=== PATIENT | female | born 1970 | race Two or more races ===

== ENCOUNTER 2016-10-13 23:03 | Emergency (ER) | payer MEDICAID ==
[~2016-10-13] VITALS: Ht 160 cm; Wt 61.7 kg
[2016-10-14 03:55] VITALS: BP 115/84
== END 2016-10-14 04:47 | disposition home or self-care (01) ==
LOC: ER 23:22
DX: K08.89 Other specified disorders of teeth and supporting structures (principal); K13.79 Other lesions of oral mucosa

== ENCOUNTER 2016-12-16 23:55 | Emergency (ER) | payer MEDICAID ==
[~2016-12-16] VITALS: Ht 160 cm; Wt 62.6 kg
[2016-12-17] MEDS ORDERED: MORPHINE SULF INJ 2 MG/ML SYRINGE 1ML IV ONE
[2016-12-17 00:48] LABS: Basophils # (auto) 0 uL; Basophils % (auto) 0.3 % (0.0-2.0); CONDITION Y; Eosinophils # (auto) 0.1 uL; Eosinophils % (auto) 0.6 % (0.0-7.0); Hematocrit 38.8 % (36.0-46.0); Lymphocytes # (auto) 2.9 uL; Lymphocytes % (auto) 27.7 % (10.0-50.0); Mean Corpuscular Hemoglobin 30.6 pg (28.0-32.0); Mean Corpuscular Hgb Conc. 33.6 g/dL (32.0-36.0); Mean Corpuscular Volume 91.1 fL (80.0-100.0); Mean Platelet Volume 10.1 fL (7.4-10.4); Monocytes # (auto) 0.5 uL; Monocytes % (auto) 4.3 % (0.0-12.0); Neutrophils # (auto) 7.1 uL; Neutrophils % (auto) 67.1 % (37.0-80.0); Platelet Count (auto) 261 10^3/uL (140-450); Red Cell Distribution Width 14.1 % (11.6-16.0); SUSPECT SEE PRINTOUT; White Blood Cell 10.6 10^3/uL (4.4-10.8)
[2016-12-17] MEDS ORDERED: ONDANSETRON HCL 4 MG/2 ML VIAL ONE (00:48)
[2016-12-17] MEDS ORDERED: HYDROmorphone HCL 2 MG/ML VL ONE (00:48)
[2016-12-17] MEDS ORDERED: HYDROmorphone HCL 2 MG/ML VL IV ONE ×4 (01:00→06:45)
[2016-12-17 01:07] LABS: INR 0.92 (0.9-1.15); Partial Thromboplastin Time 21.4 sec (22.64-33.71)
[2016-12-17 02:52] LABS: Potassium 4.2 mmol/L (3.5-5.1)
[2016-12-17 02:53] LABS: BUN/Creatinine Ratio 19.8
[2016-12-17 02:54] LABS: Bilirubin, Total 0.2 mg/dL (0.2-1.0); Calcium 8.4 mg/dL (8.5-10.1); Total Protein 7.9 g/dL (6.4-8.2)
[2016-12-17] MEDS ORDERED: ETOMIDATE (2MG/ML) 20ML VIAL IV ONE (03:45)
[2016-12-17] MEDS ORDERED: ONDANSETRON HCL 4 MG/2 ML VIAL IV ONE ×2 (03:45)
[2016-12-17 06:27] VITALS: BP 116/76
== END 2016-12-17 04:43 | disposition short-term general hospital (02) ==
LOC: ER 23:58
DX: M48.54XA Collapsed vertebra, not elsewhere classified, thoracic region, initial encounter for fracture (principal); S52.502A Unspecified fracture of the lower end of left radius, initial encounter for closed fracture; S16.1XXA Strain of muscle, fascia and tendon at neck level, initial encounter; R51 Headache; V00.128A Other non-in-line roller-skating accident, initial encounter; Y93.23 Activity, snow (alpine) (downhill) skiing, snowboarding, sledding, tobogganing and snow tubing; Y99.8 Other external cause status; Y92.89 Other specified places as the place of occurrence of the external cause
CPT/HCPCS: 25605; 36415; 51702; 70450; 71010; 72125; 72131; 73030; 73090; 73100; 80053; 81025; 85025; 85610; 85730; 86850; 86900; 86901; 96374; 96375; 96376; 99285; J1170; J2405; J7030; 99152

== ENCOUNTER 2017-12-27 17:37 | Emergency (ER) | payer MEDICAID ==
[~2017-12-27] VITALS: Ht 160 cm; Wt 62.6 kg
[2017-12-27] MEDS ORDERED: VANCOMYCIN 1GM/250ML 250 ML IV ONE (20:00)
[2017-12-27 20:19] LABS: Basophils # (auto) 0.1 uL; Basophils % (auto) 0.6 % (0.0-2.0); Eosinophils # (auto) 0.1 uL; Eosinophils % (auto) 1.2 % (0.0-7.0); Hematocrit 38.6 % (36.0-46.0); Hemoglobin 13.1 g/dL (12.2-16.2); Lymphocytes # (auto) 2.3 uL; Lymphocytes % (auto) 27.8 % (10.0-50.0); Mean Corpuscular Hemoglobin 30.9 pg (28.0-32.0); Mean Corpuscular Hgb Conc. 34.1 g/dL (32.0-36.0); Mean Corpuscular Volume 90.6 fL (80.0-100.0); Monocytes # (auto) 0.6 uL; Monocytes % (auto) 7.4 % (0.0-12.0); Neutrophils # (auto) 5.3 uL; Nucleated Red Blood Cells % 0.1 %; Platelet Count (auto) 176 10^3/uL (140-450); Red Blood Cells 4.25 10^6/uL (4.0-5.20); Red Cell Distribution Width 13.5 % (11.8-14.3); White Blood Cell 8.4 10^3/uL (4.4-10.8)
[2017-12-27 20:33] LABS: Calcium 8.9 mg/dL (8.5-10.1); Potassium 3.9 mmol/L (3.5-5.1)
[2017-12-27 20:37] LABS: Albumin 3.7 g/dL (3.4-5.0); BUN/Creatinine Ratio 16.9
[2017-12-27 20:40] LABS: Bilirubin, Total 0.4 mg/dL (0.2-1.0); Total Protein 7.4 g/dL (6.4-8.2)
[2017-12-27] MEDS ORDERED: IOHEXOL 300 MG/ML 100ML BOTTLE IJ ONE (20:46)
[2017-12-27 23:20] LABS: Urine Bacteria NONE SEEN /hpf (None Seen); Urine Blood Negative /uL (Negative); Urine WBC 1 /hpf (0 - 5)
[2017-12-27 23:27] LABS: Urine Specific Gravity > 1.050 (1.001-1.035)
[2017-12-28 05:21] VITALS: BP 106/60
== END 2017-12-28 06:34 | disposition home or self-care (01) ==
LOC: ER 17:44
DX: K76.9 Liver disease, unspecified (principal); R68.89 Other general symptoms and signs; R10.9 Unspecified abdominal pain; G43.909 Migraine, unspecified, not intractable, without status migrainosus
CPT/HCPCS: 36415; 74177; 80053; 81001; 81025; 85025; 99285; Q9967

== ENCOUNTER 2023-11-23 15:53 | Inpatient (IN) | payer MEDICAID ==
[~2023-11-23] VITALS: Ht 160 cm; Wt 167.0 kg
[2023-11-23] MEDS: ONDANSETRON ODT 4 MG TAB PO ONE (17:00)
[2023-11-23 17:52] LABS: Urine Bacteria None Seen /hpf (None Seen)
[2023-11-23 17:59] LABS: Basophils # (auto) 0 10 ^3/uL (0-0.2); Basophils % (auto) 0.4 % (0.0-2.0); Eosinophils # (auto) 0.1 10 ^3/uL (0-0.8); Hematocrit 42.6 % (36.0-46.0); Lymphocytes # (auto) 2.1 10 ^3/uL (0.4-5.4); Mean Corpuscular Hemoglobin 30.2 pg (28.0-32.0); Mean Corpuscular Hgb Conc. 32.9 g/dL (32.0-36.0); Mean Corpuscular Volume 91.7 fL (80.0-100.0); Monocytes # (auto) 0.5 10 ^3/uL (0-1.3); Neutrophils % (auto) 68.6 % (37.0-80.0); Red Blood Cells 4.65 10^6/uL (4.0-5.20); Red Cell Distribution Width 14.5 % (11.8-14.3); White Blood Cell 8.7 10^3/uL (4.4-10.8)
[2023-11-23 18:18] LABS: Urine Blood TRACE /uL (Negative); Urine Clarity Clear (Clear); Urine Color Yellow (Yellow); Urine Mucus FEW (None Seen); Urine Protein, UAD TRACE (Negative); Urine Specific Gravity 1.026 (1.001-1.035); Urine Urobilinogen 2 mg/dL (Negative); Urine WBC 1 /hpf (0 - 5)
[2023-11-23 18:19] LABS: Alanine Aminotransferase 28 U/L (7-40); Albumin 4.6 g/dL (3.2-4.8); Alkaline Phosphatase 85 U/L (46-116); Anion Gap 4 (5-15); Aspartate Aminotransferase 16 U/L (13-40); BUN/Creatinine Ratio 17.1 (10.0-20.0); Blood Urea Nitrogen 13 mg/dL (9-23); Carbon Dioxide 28 mmol/L (20-30); Chloride 108 mmol/L (98-107); Glucose 95 mg/dL (74-106); Lipase 33 U/L (12-53); Potassium 4.3 mmol/L (3.5-5.1); Sodium 140 mmol/L (136-145)
[2023-11-23 18:20] LABS: Bilirubin, Total 0.6 mg/dL (0.2-1.0); Total Protein 7.4 g/dL (5.7-8.2)
[2023-11-23] MEDS ORDERED: ONDANSETRON HCL 4 MG/2 ML VIAL IV PRN (21:15)
[2023-11-23] MEDS ORDERED: MORPHINE SULFATE INJ 2 MG/ml SYRG IV PRN (21:15)
[2023-11-23] MEDS: cefTRIAXone 1GM/50ML D5W 50 ML IV ONE (23:17)
[2023-11-23] MEDS: SODIUM CHLORIDE 0.9% 1,000 ML IV SCH (23:32)
[2023-11-24 06:12] LABS: Basophils # (auto) 0 10 ^3/uL (0-0.2); Basophils % (auto) 0.4 % (0.0-2.0); Eosinophils # (auto) 0.1 10 ^3/uL (0-0.8); Eosinophils % (auto) 1.4 % (0.0-7.0); Hematocrit 40.5 % (36.0-46.0); Hemoglobin 13.5 g/dL (12.2-16.2); Lymphocytes # (auto) 2.8 10 ^3/uL (0.4-5.4); Lymphocytes % (auto) 30.9 % (10.0-50.0); Mean Corpuscular Hemoglobin 30.4 pg (28.0-32.0); Mean Corpuscular Hgb Conc. 33.3 g/dL (32.0-36.0); Mean Corpuscular Volume 91.3 fL (80.0-100.0); Monocytes # (auto) 0.7 10 ^3/uL (0-1.3); Monocytes % (auto) 7.7 % (0.0-12.0); Neutrophils # (auto) 5.3 10 ^3/uL (1.6-8.6); Neutrophils % (auto) 59.6 % (37.0-80.0); Red Blood Cells 4.44 10^6/uL (4.0-5.20); Red Cell Distribution Width 14.3 % (11.8-14.3)
[2023-11-24 06:22] LABS: Chloride 108 mmol/L (98-107); Sodium 138 mmol/L (136-145)
[2023-11-24 06:23] LABS: Anion Gap 2 (5-15); Carbon Dioxide 28 mmol/L (20-30)
[2023-11-24 06:24] LABS: Calcium 8.6 mg/dL (8.7-10.4)
[2023-11-24 06:28] LABS: Glucose 99 mg/dL (74-106)
[2023-11-24 06:29] LABS: BUN/Creatinine Ratio 20.5 (10.0-20.0); Blood Urea Nitrogen 15 mg/dL (9-23)
[2023-11-24 07:55] VITALS: PULSE 80; RESP 18; O2SAT 97
[2023-11-24] MEDS: cefTRIAXone 1GM/50ML D5W 50 ML IV SCH (09:49)
[2023-11-24 16:58] VITALS: BP 129/71; PULSE 72; RESP 16; TEMP 98.4; O2SAT 98
[2023-11-24 17:12] VITALS: BP 129/71; PULSE 72; RESP 16; TEMP 98.4; O2SAT 98
[2023-11-24 20:00] VITALS: PULSE 72; RESP 16; O2SAT 98
[2023-11-24 21:00] VITALS: BP 110/76; PULSE 74; RESP 16; TEMP 98.8; O2SAT 95
[2023-11-25] VITALS (8 sets, daily range): BP systolic 111–133; BP diastolic 50–81; PULSE 60–91; RESP 15–20; TEMP 97.8–98.6; O2SAT 97–98
[2023-11-26] VITALS (7 sets, daily range): BP systolic 112–141; BP diastolic 52–82; PULSE 54–89; RESP 16–20; TEMP 97.4–98.2; O2SAT 67–98
== END 2023-11-26 15:15 | disposition home or self-care (01) ==
LOC: ER 15:53 → OVERFLOW 21:09 → CENTRAL 11-24 16:45
PROVIDERS: ADMIT Nurse Practitioner; ATTEND Nurse Practitioner Acute Care
DX: K80.20 Calculus of gallbladder without cholecystitis without obstruction (principal); N20.0 Calculus of kidney
CPT/HCPCS: 36415; 76705; 78226; 80048; 80053; 81001; 83690; 85025; 96365; G0378